=== PATIENT | male | born 1995 | race Caucasian/White ===

== ENCOUNTER 2018-06-03 00:08 | Emergency (ER) | payer OTHER ==
--- NOTE | 2018-06-03 00:50 | ED ---
Complex/Multi-Sys Presentation - HPI Summary HPI Summary: This is Ricardo craven documenting for attending physician Agusto Paiz MD. This patient is a 22 year old M BIBA to [facility] with a chief complaint of bilateral extremity and facial numbness that occurred 2 hours ago. Pt states that is resolved then returned. The patient rates the pain 0/10 in severity. Patient reports slurred speech. Patient denies palpitations, rapid breathing, facial droop, n/v/d, poor sleep, and anxious. Pt had a URI sx last week. Pt is feeling better than earlier but still has minor sx. Hx of anxiety with similar sx in the past. Pt has had intermittent stabbing pain in the RUQ for the last couple months. - History Of Current Complaint Chief Complaint: EDNeurologicalDeficit Time Seen by Provider: 06/03/18 00:41 Hx Obtained From: Patient Onset/Duration: Lasting Hours, Resolved Timing: Constant Severity Currently: Mild Severity Initially: Moderate Associated Signs And Symptoms: Positive: Other - numbness and slurred speech - Allergies/Home Medications Allergies/Adverse Reactions: Allergies Allergy/AdvReac Type Severity Reaction Status Date / Time No Known Allergies Allergy Verified 06/03/18 00:52 PMH/Surg Hx/FS Hx/Imm Hx Cardiovascular History: Denies: Hx Pacemaker/ICD, Hx Peripheral Vascular Disease Respiratory History: Denies: Hx Chronic Obstructive Pulmonary Disease (COPD), Hx Cystic Fibrosis GI History: Denies: Hx Diverticulosis, Hx Gall Bladder Disease, Hx Gastrointestinal Bleed History: Denies: Hx Benign Prostatic Hyperplasia, Hx Chronic Renal Failure Neurological History: Denies: Hx Peripheral Neuropathy, Hx Seizures, Hx Spinal Cord Injury, Hx Transient Ischemic Attacks (TIA) Psychiatric History: Reports: Hx Anxiety Infectious Disease History: No Infectious Disease History: Denies: Traveled Outside the [place] in Last 30 Days - Family History Known Family History: Negative: Respiratory Disease, Seizure Disorder - Social History Alcohol Use: None Hx Substance Use: No Substance Use Type: Reports: None Hx Tobacco Use: No Smoking Status (MU): Never Smoked Tobacco Review of Systems Negative: Palpitations Respiratory: Negative - rapid respiration Negative: Vomiting, Diarrhea, Nausea Positive: Numbness, Slurred Speech Negative: Anxious All Other Systems Reviewed And Are Negative: Yes Physical Exam - Summary Physical Exam Summary: Appearance: Well appearing, no pain distress Skin: warm, dry, reflects adequate perfusion Head/face: normal Eyes: EOMI, [facility] ENT: normal Neck: supple, non-tender Respiratory: CTA, breath sounds present Cardiovascular: RRR, pulses symmetrical Abdomen: non-tender, soft Bowel Sounds: present Musculoskeletal: normal, strength/ROM intact Neuro: normal, sensory motor intact, A&Ox3 Psych: Anxious, fidgeting Triage Information Reviewed: Yes Vital Signs On Initial Exam: Initial Vitals Temp Pulse Resp BP Pulse Ox 98.1 F 90 18 133/78 98 06/03/18 00:14 06/03/18 00:14 06/03/18 00:14 06/03/18 00:14 06/03/18 00:14 Vital Signs Reviewed: Yes Diagnostics - Vital Signs Vital Signs Temp Pulse Resp BP Pulse Ox 06/03/18 00:14 98.1 F 90 18 133/78 98 - Laboratory Lab Statement: Any lab studies that have been ordered have been reviewed, and results considered in the medical decision making process. Re-Evaluation - Re-Evaluation First Eval Re-Evaluation Time: 03:24 Change: Improved Comment: Patient reports that all sx have resolved. Complex Multi-Symp Course/Dx Course Of Treatment: Patient with a history of anxiety presents with intermittent whole body numbness worse in the face and upper extremities. This resolved with. Of observation and oral Benadryl. He has had no palpitations and stable vital signs throughout. He was very fidgety early on and that seemed to calm as well. He'll follow closely with primary care provider. - Diagnoses Differential Diagnoses/HQI/PQRI: Other - Anxiety, palpitations, metabolic abnormality Provider Diagnoses: Anxiety reaction Discharge - Sign-Out/Discharge Documenting (check all that apply): Patient Departure - Discharge Plan Condition: Improved Disposition: HOME Prescriptions: hydrOXYzine pamoate [Vistaril] 50 mg PO TID PRN #30 capsule PRN Reason: Anxiety Patient Education Materials: Panic Attack (ED) Referrals: [facility] [Outside] [facility] [place] [facility]FERRAL [Outside] Additional Instructions: Medication can be sedating. Do not drive if you're taking Vistaril. Return if worse, new symptoms or other concerns. [facility] clinic can provide prompt follow-up. A referral to primary care physician has been given to you. - Billing Disposition and Condition Condition: IMPROVED Disposition: Home Attestation Statement Scribe Attestation: This is Ricardo craven documenting for attending physician Agusto Paiz MD. User Type: Provider with [facility] Provider Attestation: The documentation recorded by the scribe accurately reflects the service I personally performed and the decisions made by me.
[2018-06-03] MEDS ORDERED: diPHENhydraMINE PO* 25 MG PO ONE (01:20)
[2018-06-03 04:03] VITALS: BP 133/83
== END 2018-06-03 04:01 | disposition home or self-care (01) ==
LOC: ED 00:08
DX: F41.1 Generalized anxiety disorder (principal); R20.0 Anesthesia of skin; R47.81 Slurred speech
CPT/HCPCS: 99283; A9270-GY